=== PATIENT | male | born 1970 | race African-American/Black ===

== ENCOUNTER 2020-05-16 14:40 | Inpatient (IN) | payer BC, OTHER ==
[~2020-05-16] VITALS: Ht 182.9 cm; Wt 135.6 kg
[2020-05-16 14:41] VITALS: BP 184/97
[2020-05-16 15:24] LABS: ABSOLUTE NEUTROPHILS 3.6 thou/uL (1.4-8.2); BASOPHILS 0.9 % (0.0-2.0); HEMATOCRIT 40.2 % (42.0-52.0); MCH 30.1 pg (26.0-34.0); MCHC 32.3 g/dL (28.0-37.0); MCV 93.1 fL (80.0-100.0); MONOCYTES 10.1 % (1.0-8.0); PLATELET COUNT 161 thou/uL (150-400); RBC 4.32 mil/uL (4.50-6.00); RDW 13.1 % (10.5-14.5); WBC 4.5 thou/uL (4.0-11.0)
[2020-05-16 15:38] LABS: ANION GAP 14 mmol/L (7-16); BUN 48 mg/dL (7-18); CALCIUM 8.1 mg/dL (8.5-10.1); CHLORIDE 101 mmol/L (98-107); CO2 19 mmol/L (21-32); CREATININE 3.7 mg/dL (0.7-1.3); GLUCOSE 351 mg/dL (74-106); POTASSIUM 4.9 mmol/L (3.5-5.1); SODIUM 134 mmol/L (136-145)
[2020-05-16 15:48] LABS: ALBUMIN 2.8 g/dL (3.4-5.0); SGOT 29 U/L (15-37); SGPT 25 U/L (30-65); TOTAL PROTEIN 7.4 g/dL (6.4-8.2); TROPONIN-I <0.06 ng/mL (<0.06)
[2020-05-16] MEDS ORDERED: LIPITOR80 MG PO (17:42)
[2020-05-16] MEDS ORDERED: TOPROL XL100 MG PO (17:42)
[2020-05-16] MEDS ORDERED: ZETIA10 MG PO (17:43)
[2020-05-16] MEDS ORDERED: AMLODIPINE BESY10 MG PO (17:43)
[2020-05-16] MEDS ORDERED: METFORMIN HCL500 M3 PO (17:44)
[2020-05-16] MEDS ORDERED: SPIRONOLACTONE50 MG PO (17:44)
[2020-05-16] MEDS ORDERED: DIOVAN160 MG PO (17:44)
[2020-05-16 18:51] LABS: TSH 0.689 uIU/mL (0.358-3.740)
--- NOTE | 2020-05-16 21:26 | NUR ---
Amaya WHITLOCK NOTIFIED RE: PT'S BP AND HOME MEDS NEEDING RESTARTED. ORDERS RECEIV- ED. BP IMPROVED AFTER LASIX, PT DIURESING ABOUT 300 ML CONCENTRATED URINE. PREPARING TO CALL REPORT TO FLOOR.
[2020-05-16 22:00] VITALS: BP 163/88
--- NOTE | 2020-05-17 00:33 | NUR ---
PT ARRIVED VIA CART FROM ER. PT POSITIVE FOR COVID. NOTIFIED TRAINING PROJECT MANAGER, HS, AND ID.
[2020-05-17 01:15] VITALS: BP 196/98
[2020-05-17 05:49] LABS: INR 1.1; PROTIME 11.2 Seconds (9.3-11.4)
[2020-05-17 05:54] LABS: FIBRINOGEN 482.2 mg/dL (210-360)
[2020-05-17 05:59] LABS: HEMOGLOBIN 11.3 gm/dL (14.0-18.0); WBC 3.7 thou/uL (4.0-11.0)
[2020-05-17 06:01] LABS: HEMATOCRIT 34.5 % (42.0-52.0); MCH 30.6 pg (26.0-34.0); MCHC 32.9 g/dL (28.0-37.0); PLATELET COUNT 146 thou/uL (150-400); RBC 3.71 mil/uL (4.50-6.00); RDW 13.4 % (10.5-14.5)
[2020-05-17 06:43] LABS: ALBUMIN 2.4 g/dL (3.4-5.0); CALCIUM 7.3 mg/dL (8.5-10.1); CREATININE 4.6 mg/dL (0.7-1.3); TOTAL BILIRUBIN 0.8 mg/dL (0.2-1.0)
[2020-05-17 06:59] LABS: POTASSIUM 6.1 mmol/L (3.5-5.1)
[2020-05-17 07:08] LABS: GLYCOHEMOGLOBIN (HGB A1C) 7.6 % (4.8-5.6)
--- NOTE | 2020-05-17 07:41 | EKG ---
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 : 1970 Requested By: Jose Wayne Order Number: [id number] MD: Paul Hernandez Measurements Intervals [place] Rate: 115 P: 44 [place]: 159 QRS: -32 QRSD: 74 T: 53 QT: 317 QTc: 439 Interpretive Statements Sinus tachycardia Abnormal R-wave progression, late transition Inferior infarct, old No previous ECG available for comparison Electronically Signed On 05-17-2020 7:41:23 CDT by Paul Hernandez [email or web address] <ELECTRONICALLY SIGNED> By: Paul Hernandez MD, FACC 05/17/20 0741 1534 1534 Paul Hernandez MD, [facility] /EPI
[2020-05-17 08:33] VITALS: BP 177/96
[2020-05-17 10:55] LABS: ABSOLUTE NEUTROPHILS 3.2 thou/uL (1.4-8.2); PLATELET ESTIMATE NORMAL
--- NOTE | 2020-05-17 11:24 | NUR ---
Assess due to RD consult received. Admit with COVID +, ARF, hyperglycemia. Hx obesity, BMI 38, DM, HTN. Pt has had mild wt loss 2-13 lb with change in appetite, loss smell, taste and sore throat (COVID symptoms). ST has assessed, approved for regular diet. BG poorly controlled [id number] aggravated further by steroids. A1C 7.7. On appropriate carb controlled diet. Will add 1 glucerna shake until intake improves. Physician has indicated severe protein calorie malnutrition: RD will defer. Low nutrition risk with appropriate nutrition interventions in place
[2020-05-17 12:00] VITALS: BP 164/91
[2020-05-17 13:27] LABS: URINE BILIRUBIN NEGATIVE (Negative); URINE BLOOD 3+ (Negative); URINE CLARITY CLEAR; URINE COLOR YELLOW; URINE GLUCOSE-RANDOM* 3+ (Negative); URINE KETONES TRACE (Negative); URINE LEUKOCYTES-REFLEX NEGATIVE (Negative); URINE NITRITE-REFLEX NEGATIVE (Negative); URINE PROTEIN (DIPSTICK) 3+ (Negative); URINE SPECIFIC GRAVITY 1.025 (1.005-1.035); URINE UROBILINOGEN 0.2 E.U./dl (0.2-1.0)
[2020-05-17 13:33] LABS: CASTS None Seen /LPF (None Seen); SQUAMOUS 0-3 Few /LPF (0-3); URINE WBC-REFLEX None Seen /HPF (0-5)
[2020-05-17 13:35] LABS: BACTERIA-REFLEX 1-9 Few /HPF (None Seen); CRYSTALS None Seen /LPF (None Seen); URINE RBC 3-10 Few /HPF (0-2)
[2020-05-17 13:41] LABS: URINE CREATININE-RANDOM* 70.6 mg/dL
[2020-05-17 15:45] VITALS: BP 169/91
--- NOTE | 2020-05-17 15:54 | NUR ---
INITIAL ASSESSMENT: MISSAEL reviewed chart and spoke with nursing and attending physician. Pt was admitted from home due to pneumonia/ARF/sepsis. Pt placed in Enhanced Isolation due to testing positive for COVID-19. Pt had previously tested positive at [facility] earlier in the month. Pt had a fever and is on IV abx. Not requiring O2. Renal and ID consulted. Pt is not a candidate for Remdesivir at this time. SW spoke with pt via phone. Introduced role of SW. Pt is alert/orientated x 4. Pt reports he lives at home alone. Prior to admission, pt was independent with ADLs. No use of DME. No hx of post-acute placement or HH services. Pt states he sees an tender labor as an outpatient for his diabetes. Pt unable to recall name of physician. Pt's plan is to return home when medically stable. SW is following to assist as needed with discharge planning.
[2020-05-17 19:29] VITALS: BP 157/89
[2020-05-18] VITALS (12 sets, daily range): BP systolic 143–179; BP diastolic 84–95
[2020-05-18 06:00] LABS: HEMATOCRIT 34.6 % (42.0-52.0); HEMOGLOBIN 11.3 gm/dL (14.0-18.0); MCH 30.4 pg (26.0-34.0); MCHC 32.7 g/dL (28.0-37.0); MCV 93.1 fL (80.0-100.0); RBC 3.72 mil/uL (4.50-6.00); WBC 6.4 thou/uL (4.0-11.0)
[2020-05-18 06:15] LABS: ALBUMIN 2.3 g/dL (3.4-5.0); CALCIUM 8.1 mg/dL (8.5-10.1); CREATININE 5.5 mg/dL (0.7-1.3); PHOSPHORUS 3.1 mg/dL (2.5-4.9); POTASSIUM 5.8 mmol/L (3.5-5.1)
--- NOTE | 2020-05-18 10:49 | NUR ---
INSTRUCTED BY DR. ARREOLA TO INCREASE INSULING GTT TO 15MG/HOUR IF NEXT BLOOD GLUCOSE IS GREATER THAN 500.
--- NOTE | 2020-05-18 13:19 | NUR ---
SW reviewed chart and spoke with nursing and attending physician. Pt remains in Enhanced Isolation due to COVID-19. Pt is afebrile and not requiring O2. Pt is on IV abx and insulin gtt. Pt's BG has been in the 700s. SW is following to assist as needed with discharge planning.
[2020-05-18 15:10] LABS: CALCIUM 8.4 mg/dL (8.5-10.1); CREATININE 5.3 mg/dL (0.7-1.3)
[2020-05-18 15:15] LABS: POTASSIUM 4.5 mmol/L (3.5-5.1)
--- NOTE | 2020-05-18 15:47 | NUR ---
JEN CASTELLANO RENAL DR. PRUITT TO INQUIRE ABOUT IVF TO HELP WITH BLOOD GLUCOSE LEVEL. HE INFORMED ME THAT IVF WOULD NOT HELP ELEVATED GLUCOSE LEVEL IS R/T METHYLPREDNISONE. INSTRUCTED TO CONTINUE TO TIRTRATE INSULIN GTT.
--- NOTE | 2020-05-18 23:00 | NUR ---
ASSUMED PT CARE AT AROUND 1920 HRS. ASSESSMENT COMPLETED. PT UP AD GUERO IN ROOM.APPEARS TO BE IN NO DISTRESS.BP COMING DOWN ABIT. PT DENIES ANY HEADACHE OR NAUSEA.MILD OCCASIONAL COUGH.ON INSULIN DRIP @25. Q1HR CHECKS PER PROTOCOL.ACCUCHECK OF 242@1952(SCHEDULED 36 UNITS OF LANTUS GIVEN),183@2058 THEN 139@2210(RATE CHANGED TO 12.5). SR ON TELEMETRY.TRANSFERRED TO ICU @2300 PER ORDERS.
[2020-05-19] VITALS (30 sets, daily range): BP systolic 130–185; BP diastolic 77–106
--- NOTE | 2020-05-19 05:17 | NUR ---
ASSESSMENT: PT TRANSFERRED TO THE UNIT AT APPROXIMATELY 2200 FROM [facility] WITH EVERY HOUR ACCU CHECKS. FIRST ACCU CHECK AT TRANSFER WAS 139, INSULIN RATE WAS 12.5ML/HR. INSULIN WAS TITRATED TO 9 ML/HR. BS ARE STAYING WITH THE RANGE OF 90-130 PER ORDERS. PT IS ALERT AND ORIENT TIMES FOUR, SLOW TO RESPOND AT TIMES. ABLE TO AMBULATE WITH SBA. DENIES PAIN. DOES HAVE A NON-PRODUCTIVE COUGH AND DID SNEEZE A COUPLE OF TIMES. PT IS COVID + AND IS ENHANCED PRECAUTIONS ISO. ACCORDING TO REPORT, PT HAD 2 BM'S DURING THE DAY. SR PER MONITOR. ELEVATED BP WHILE ASLEEP. GOOD PROGRESS TOWARDS DC GOALS. WILL CONTINUE TO MONTIOR.
[2020-05-19 08:41] LABS: CALCIUM 8.7 mg/dL (8.5-10.1); CREATININE 5.6 mg/dL (0.7-1.3); MAGNESIUM 2.4 mg/dL (1.8-2.4); POTASSIUM 4.4 mmol/L (3.5-5.1)
--- NOTE | 2020-05-19 09:55 | HC ---
[facility] [place] [address] CONSULTATION Name: GONZALEZ TERRELL Rashida Room #: 238-P [facility] IN M.R.#: [id number] Admission: 05/16/20 Attend Phys: Dave Torrez MD Discharge: Date of : 74 Report #: [id number] THIS REPORT FOR: cc: INGE - Family physician unknown INGE - Family physician unknown Leigha Wolf MD ~ CC: Dave ALCAZAR unknown DATE OF SERVICE: 05/18/2020 ENDOCRINE CONSULTATION NOTE CONSULTING PHYSICIAN: Dr. Romel Hardin. REASON FOR CONSULTATION: Uncontrolled type 2 diabetes mellitus. HISTORY OF PRESENT ILLNESS: This is a 49-year-old male patient whose medical background is significant for multiple medical issues including hypertension and type 2 diabetes mellitus, who presented to [place] with complaints of generalized weakness, fatigue as well as malaise and sore throat. Further testing confirmed that he is positive for COVID-19. He was admitted for further care and monitoring. The patient knows that he is maintained on a regimen of NovoLog insulin 28 units with each meal as well as Lantus insulin 70 units at bedtime and metformin twice a day. He notes that his blood glucose values usually fluctuate between 80 and 200 mg/dL, but that they mostly remain in the mid to high 100s. He does not have major or frequent issues with hypoglycemia. The patient does not believe that he has developed retinopathy over his course with diabetes mellitus that has run for the past 20 years or so. He is not aware of issues pertaining to chronic kidney disease. The patient does not have difficulties with peripheral neuropathy nor does he have coronary artery disease. In addition to type 2 diabetes mellitus, the patient is known to have hyperlipidemia and is treated with atorvastatin 80 mg at bedtime and ezetimibe 10 mg daily. He is also hypertensive and is maintained on valsartan 160 mg daily, Toprol-XL 100 mg 3 times daily, spironolactone 50 mg daily. REVIEW OF SYSTEMS: CONSTITUTIONAL: Fatigue, malaise, few chills. No major fever. No body weight changes. HEENT: Sore throat. No sinus pain, ear drainage. PULMONARY: Occasional shortness of breath and cough, but not hemoptysis. [facility] [address] [place] [address] CONSULTATION Name: GONZALEZ TERRELL Room #: [address] [place] [address] IN ..#: [id number] Admission: 05/16/20 Attend Phys: Dave Torrez MD Discharge: Date of : 74 Report #: [id number] CARDIAC: Negative for chest pain, palpitations, syncope or presyncope. GASTROINTESTINAL: Negative for major changes in bowel movement frequency, but is noted for abdominal discomfort and occasional nausea. NEUROLOGY: Negative for loss of consciousness, severe frequent headaches, seizure activity. Otherwise, his review of systems is noncontributory other than those mentioned in HPI. PAST MEDICAL HISTORY: 1. Type 2 diabetes mellitus. 2. Hypertension. 3. Hyperlipidemia. 4. Obesity. OUTPATIENT MEDICATIONS: Metoprolol XL 300 mg daily, atorvastatin 80 mg at bedtime, Zetia 10 mg daily, amlodipine 10 mg daily, metformin b.i.d., valsartan 160 mg daily, spironolactone 50 mg daily. ALLERGIES: There are no known drug allergies. FAMILY HISTORY: Noncontributory. SOCIAL HISTORY: The patient denies use of tobacco, alcohol or illicit drugs. He is not and does not have children. PHYSICAL EXAMINATION: GENERAL: Pleasant -[place] male patient who is not in apparent pain or distress. VITAL SIGNS: Blood pressure is 143/84 mmHg, heart rate is 104 beats per minute, respiration 18 per minute, temperature 36.6 degrees Celsius. CONSTITUTIONAL: The patient is sitting upright in bed, appears relatively comfortable, not in apparent distress. HEENT: Anicteric sclerae. Intact extraocular motions. NECK: Supple, without JVD, carotid bruits or thyromegaly. CHEST: Noted for moderate entry bilaterally with scattered rales, but not wheezes or crackles. HEART: Regular rate and rhythm without murmurs or gallops. ABDOMEN: Soft, lax. No guarding. Active bowel sounds. EXTREMITIES: Lower extremity exam is noted for trace ankle edema, but no skin breaks or ulcerations. NEUROLOGIC: Awake, alert, and oriented to time, place and person. The rest of his examination is nonfocal. PSYCHIATRIC: Pleasant, interactive. Normal mood and affect. LABORATORY DATA: The patient's blood glucose values were reviewed at length since his hospital stay. On presentation, his blood glucose was elevated and [facility] [address] [place] [address] CONSULTATION Name: TERRELLGONZALEZ GARCIA Rashida Room #: 238-P [facility] IN ..#: [id number] Admission: 05/16/20 Attend Phys: Dave Torrez MD Discharge: Date of : 74 Report #: [id number] has remained so throughout his stay and earlier this morning was registered at 786 mg/dL. Sodium 126, potassium 5.8, chloride 96, CO2 19, anion gap 11, BUN 82, creatinine of 5.5. On presentation, this was at 3.7, total bilirubin 0.8, calcium 8.1, phosphorus 3.1, magnesium 1.9, alkaline phosphatase 94, ALT 26, total protein 6.0, albumin 2.3, EGFR 14. Lactic acid 1.3, CPK 126. BNP 1344. CRP 89.6. White blood count 6.4, hemoglobin 11.3, hematocrit 34.6, platelets 187. TSH 0.689. Hemoglobin A1c 7.6%. Vitamin D 10.8. ASSESSMENT AND PLAN: 1. Type 2 diabetes mellitus. The patient is maintained on a fairly large insulin requirement as per his report of insulin therapy at home. His reported blood glucose values match up to the measured hemoglobin A1c of 7.6%. However, the accuracy of this is a rather suspect in view of his advanced kidney disease. I have resumed the patient's basal bolus coverage yesterday with both Lantus and Humalog insulin, but this resumption did not seem to influence his blood glucose outlook whatsoever as he remained severely hyperglycemic and has actually gotten his highest blood glucose earlier this morning. Given his failure to respond to subcutaneous basal bolus insulin therapy, I have made orders to convert him to intravenous insulin therapy as per the [facility] IV insulin protocol, which was started 2 hours ago. Blood glucose monitoring will be intensified on hourly basis as per [facility] IV insulin protocol, and therapeutic adjustments will be made accordingly until a satisfactory glycemic control was achieved. Once he demonstrates a satisfactory glycemic control, we could revert to a subcutaneous therapy. I believe that under the current circumstances of his acute illness as well as the need to utilize a high dose steroid therapy that this prompted the current issues with severe hyperglycemia. Furthermore, I am suspicious that his baseline is probably not ideal to begin with. As we proceed with IV insulin therapy, I will maintain Lantus therapy to expedite his recovery and transition to basal bolus therapy eventually. 2. Hypertension. The patient's level of blood pressure control is marginal. He is to continue with the current regimen and adjust his regimen as per the managing hospital team. 3. Hyperlipidemia. The patient is maintained on a combination of atorvastatin and ezetimibe. These are to be resumed once he is clinically stable to do so. 4. Renal insufficiency. The patient has advanced kidney disease. I would attribute at least part of the current renal insufficiency to the presumed dehydration in the setting of severe hyperglycemia. Dr. Whiteside and I will be evaluating the patient for this issue in the near future. 5. Pneumonia. The patient was diagnosed with COVID-19 and is currently receiving therapy with zinc, high dose steroid therapy in the form of Solu-Medrol 62.5 mg IV t.i.d., Rocephin [place] [address] CONSULTATION Name: GONZALEZ TERRELL Rashida Room #: 238-P [facility] IN [facility].#: [id number] Admission: 05/16/20 Attend Phys: Dave Torrez MD Discharge: Date of : 74 Report #: [id number] I certainly appreciate this consultation by Dr. Hardin. <ELECTRONICALLY SIGNED> By: Leigha Wolf MD 05/19/20 0955 0949 1410 MD phillip Clifford
--- NOTE | 2020-05-19 14:02 | NUR ---
cm tired visited with francesca via phone call, no answer. cm spoke with his brother miguel sc phone call and he stated francesca is talking with mom on phone now. pt still on insulin drip. cm confirmed pt doesnt have pcp but has dm dr at [facility] dusty [place] at [address] [place] [address] mo [address] location # [phone]. pt covid +. DCP from home and plan to dc home when medically stable.
--- NOTE | 2020-05-19 18:37 | NUR ---
PT CONTINUES ON INSULIN GTT AND ENHANCED PREACAUTIONS FOR COVID 19. PT UP AROUND ROOM AND TAKING IN GOOD PO. OBTAIN ORDER FOR HYDRALAZINE TO TREAT ELEVATED BLODD PRESSURE. NC REMAINS ON ROOM AIR AND IS PROGRESSING TOWARDS GOAL. WILL CONTINUE TO ASSESS.
--- NOTE | 2020-05-19 19:06 | NUR ---
SPOKE WITH DR JADE OF BACKORDER FOR HYDRALAZINE AND HE WILL CHANGE BLOOD PRESSURE MEDICATIONS. BEDSIDE REPORT GIVEN TO HAYDEE BARR.
[2020-05-19 19:34] LABS: URINE CREATININE-RANDOM* 86.6 mg/dL
[2020-05-19 19:55] LABS: PROT/CREAT RATIO 6.5; URINE PROTEIN-RANDOM* 559.9 mg/dL (<11.9)
[2020-05-20] VITALS (34 sets, daily range): BP systolic 138–187; BP diastolic 85–106
[2020-05-20 05:46] LABS: ALBUMIN 2.4 g/dL (3.4-5.0); CALCIUM 8.3 mg/dL (8.5-10.1); CREATININE 5.9 mg/dL (0.7-1.3); PHOSPHORUS 3.2 mg/dL (2.5-4.9); POTASSIUM 3.8 mmol/L (3.5-5.1)
[2020-05-20 18:09] LABS: PROT/CREAT RATIO 8.2; URINE PROTEIN-RANDOM* 600.1 mg/dL (<11.9)
--- NOTE | 2020-05-20 18:30 | NUR ---
Transfer order dc'd due to continued insulin gtt and high insulin demands. Pt had small amt of bleeding from nose this morning. No further episodes. Dr Hardin made aware and will dc Lovenox is ongoing issue. Hypertensive. Dr Hardin notifed and added additional oral mediction. Pt out of bed wih assist to the commode and to the chair today. Report given to oncoming RN. See insulin flow sheet for titrations.
[2020-05-21] VITALS (33 sets, daily range): BP systolic 145–182; BP diastolic 85–108
[2020-05-21 05:06] LABS: ALBUMIN 2.3 g/dL (3.4-5.0); CALCIUM 8.2 mg/dL (8.5-10.1); CREATININE 5.4 mg/dL (0.7-1.3); POTASSIUM 4.5 mmol/L (3.5-5.1)
--- NOTE | 2020-05-21 18:36 | NUR ---
Patient up to chair twice today without difficulty. Stand by assist. Patient switched over to ACHS accuchecks and insulin, gtt stopped. Good appetite. Heart rate and rhythm stable. Adequate oxygenation on room air. Denies pain. Progressing towards plan of care.
[2020-05-22] VITALS (14 sets, daily range): BP systolic 138–175; BP diastolic 79–98
[2020-05-22 05:31] LABS: ALBUMIN 2.3 g/dL (3.4-5.0); CALCIUM 7.9 mg/dL (8.5-10.1); CREATININE 5.1 mg/dL (0.7-1.3); PHOSPHORUS 5.4 mg/dL (2.5-4.9); POTASSIUM 4.8 mmol/L (3.5-5.1)
--- NOTE | 2020-05-22 13:50 | NUR ---
chart review. he cont on insulin drip. unable to visit with pt rt conserve on ppe. he is covid +. will cont following as needed for dc needs.
[2020-05-23] VITALS (15 sets, daily range): BP systolic 133–182; BP diastolic 77–106
[2020-05-23 04:57] LABS: ALBUMIN 2.3 g/dL (3.4-5.0); CALCIUM 8.3 mg/dL (8.5-10.1); CREATININE 5.1 mg/dL (0.7-1.3); PHOSPHORUS 5.8 mg/dL (2.5-4.9); POTASSIUM 5.1 mmol/L (3.5-5.1)
--- NOTE | 2020-05-23 08:44 | NUR ---
AROUND 0830, ENDOCRINOLOGY, DR. RAGSDALE ROUNDING ON PATIENT. PLANS TO DECREASE INSULIN NEEDS DUE TO BETTER GLUCOSE READINGS. AT 0845, DR. PATEL RENAL, AT BEDSIDE. POC AND GOALS DISCUSSED WITH DR. PATEL.
[2020-05-24] VITALS (15 sets, daily range): BP systolic 147–177; BP diastolic 73–100
--- NOTE | 2020-05-24 09:16 | NUR ---
Nutrition followup: Pt remains in ICU with enhanced isolation due to COVID. Weight up 6# from admit. Eating well, 100% of meals last few days. Will D/C Glucerna. BG improved significantly with Endocrinology managing. no longer on insulin drip. Continues on steroid with vitamin/mineral for COVID. Plan transfer when room available. Remains low nutrition risk.
[2020-05-24 11:21] LABS: ALBUMIN 2.3 g/dL (3.4-5.0)
[2020-05-24 11:22] LABS: CREATININE 3.8 mg/dL (0.7-1.3)
[2020-05-24 11:30] LABS: CALCIUM 7.7 mg/dL (8.5-10.1); CREATININE 3.8 mg/dL (0.7-1.3); POTASSIUM 5.1 mmol/L (3.5-5.1)
--- NOTE | 2020-05-24 16:53 | NUR ---
PT IS UP AD GUERO IN ROOM, STEADY ON FEET, CALLS OUT APPROPRIATELY WHEN NEEDING ANYTHING. PT HAS BEEN READING MENU AND ASKING RN TO CALL AND CHANGE MENU WHEN NEEDED. PT HAS BEEN USING BESIDE URINAL AND HAD ADEQUATE UO. PT HAD BM TODAY. STILL AWAITING ROOM ON 3 W. PT IS CURRENTLY CCU STATUS. AFEBRILE.
--- NOTE | 2020-05-25 03:17 | NUR ---
ASSUMED CARE OF PATIENT AT 1900. VSS, AFEBRILE. DENIES PAIN, NAUSEA, SOB. RESTING WELL THROUGH THE NIGHT. GIVEN BATH AND LINENS CHANGED. NO S/S OF DISTRESS. PRORESSING WELL TOWARDS POC GOALS.
[2020-05-25 04:01] VITALS: BP 182/100
[2020-05-25 06:48] LABS: ALBUMIN 2.4 g/dL (3.4-5.0); CALCIUM 8.3 mg/dL (8.5-10.1); CREATININE 3.8 mg/dL (0.7-1.3); PHOSPHORUS 5.5 mg/dL (2.5-4.9); POTASSIUM 4.7 mmol/L (3.5-5.1)
[2020-05-25 08:01] VITALS: BP 159/85
[2020-05-25 13:02] VITALS: BP 168/91
[2020-05-25 16:14] VITALS: BP 148/76
--- NOTE | 2020-05-25 19:29 | NUR ---
PATIENT REMAINS A&O X 4, PLEASANT AND COOPERATIVE WITH CARES. DENIES PAIN OR SOB. uP TO CHAIR FOR A FEW HOURS THIS SHIFT. UP TO TOILET X 3. GOOD URINE OUTPUT. GOOD APPETITE. REMAINS IN ENHANCED PRECAUTIONS. NO FURTHER CONCERNS AT THIS TIME. WILL CONTINUE TO MONITOR AND CARE PER PLAN OF CARE.
[2020-05-25 20:01] VITALS: BP 138/78
[2020-05-26] VITALS: BP 175/103
[2020-05-26 04:01] VITALS: BP 149/80
--- NOTE | 2020-05-26 05:18 | NUR ---
ASSUMED CARE OF PATIENT AT 1900. VSS, AFEBRILE. RESTING WELL THROUGH THE NIGHT. NO S/S OF DISTRESS. PROGRESSING WELL TOWARDS POC GOALS.
[2020-05-26 05:47] LABS: HEMATOCRIT 31.7 % (42.0-52.0); HEMOGLOBIN 10.4 gm/dL (14.0-18.0); MCH 30.1 pg (26.0-34.0); MCHC 32.8 g/dL (28.0-37.0); MCV 91.8 fL (80.0-100.0); RBC 3.45 mil/uL (4.50-6.00); RDW 13.5 % (10.5-14.5); WBC 7.9 thou/uL (4.0-11.0)
[2020-05-26 05:51] LABS: CREATININE 3.3 mg/dL (0.7-1.3); POTASSIUM 5.2 mmol/L (3.5-5.1)
[2020-05-26 12:47] VITALS: BP 164/102
--- NOTE | 2020-05-26 13:28 | NUR ---
chart review. unable to visit with francesca ramirez + syed, conserve on ppe. cm visited with his brother miguel via phone call, he had one question, if he does have transportation home, then how will get home. cm education on [employer] transport or family if all wear mask in care ride home. dcp : home, if needs transportation call [facility] [phone] to set up time.
--- NOTE | 2020-05-26 15:02 | NUR ---
ASSUMED CARE AT 1200. AFEBRILE. ADEQUATE UOP. PATIENT EATING MEALS. POSITIVE FOR BM'S. PATIENT MOBILE AND ON ROOM AIR. PLAN IS TO DISCHARGE HOME TOMORROW. REPORT GIVEN TO 3W RN. PATIENT TO BE TRANSFERRED BY 1600.
[2020-05-26 20:55] VITALS: BP 178/101
[2020-05-26 23:15] VITALS: BP 190/105
[2020-05-27] VITALS (7 sets, daily range): BP systolic 140–183; BP diastolic 78–97
[2020-05-27 06:10] LABS: HEMOGLOBIN 10.1 gm/dL (14.0-18.0); MCH 29.8 pg (26.0-34.0); MCHC 32.5 g/dL (28.0-37.0); MCV 91.7 fL (80.0-100.0); RBC 3.38 mil/uL (4.50-6.00); RDW 13.5 % (10.5-14.5); WBC 8.8 thou/uL (4.0-11.0)
[2020-05-27 06:33] LABS: ALBUMIN 2.2 g/dL (3.4-5.0); CALCIUM 8.2 mg/dL (8.5-10.1); CREATININE 2.9 mg/dL (0.7-1.3); PHOSPHORUS 4.4 mg/dL (2.5-4.9); POTASSIUM 4.8 mmol/L (3.5-5.1)
--- NOTE | 2020-05-27 07:51 | NUR ---
ASSUMED CARE AT 1900. PT DENIED PAIN OR NAUSEA; DIM/COARSE LUNG SOUNDS, PT DENIED SOB. IVF INFUSING. BP ELEVATED DESPITE SCHEDULED BP MEDS; OBTAINED ORDER FOR ONE TIME PRN VASOTECH IVPB WHICH IMPROVED PRESSURE SLIGHTLY, COMPANY MANAGER NOTIFIED OF IMPROVED BP. NO OTHER CONCERNS, SHIFT REPORT GIVEN 0700.
[2020-05-27] MEDS ORDERED: LANTUS SUBQ (08:11)
[2020-05-27] MEDS ORDERED: CARVEDILOL25 MG PO (08:11)
[2020-05-27] MEDS ORDERED: PREDNISONE 5 MG5 M1 PO (08:12)
[2020-05-27] MEDS ORDERED: HUMALOG100 UNIT/1 SUBQ (08:12)
--- NOTE | 2020-05-27 16:29 | NUR ---
ASSUMED CARE OF PT AT 0700. PT AOX4 IN NO ACUTE DISTRESS. VOICING CONCERNS ABOUT DISABILITY CLAIMS - DEFERRED TO CASE MANGEMENT. BLOOD PRESSURE AND BLOOD SUGAR REMAIN HIGH - STABLE. OK TO D/C PER PHYSICIAN. WAITING ON PAPERWORK. CLAYTONM.
== END 2020-05-27 18:40 | disposition home or self-care (01) | DRG 871 ==
LOC: ER 14:40 → EROBS 16:28 → ICU 16:28 → 3W 16:28 → ER 22:01 → 3W 22:01 → ICU 05-18 23:26 → 3W 05-26 16:32
PROVIDERS: Emergency Medicine; Hospitalist; Internal Medicine; Internal Medicine Nephrology; Nurse Practitioner; Specialist; ADMIT Hospitalist; ATTEND Hospitalist
DX: A41.89 Other specified sepsis (principal); J12.89 Other viral pneumonia; N17.0 Acute kidney failure with tubular necrosis; U07.1 COVID-19; E44.0 Moderate protein-calorie malnutrition; E87.0 Hyperosmolality and hypernatremia; Z68.41 Body mass index [BMI] 40.0-44.9, adult; E11.65 Type 2 diabetes mellitus with hyperglycemia; E78.5 Hyperlipidemia, unspecified; E66.9 Obesity, unspecified; R53.81 Other malaise; E86.0 Dehydration; E87.5 Hyperkalemia; D64.9 Anemia, unspecified; I12.9 Hypertensive chronic kidney disease with stage 1 through stage 4 chronic kidney disease, or unspecified chronic kidney disease; N18.30 Chronic kidney disease, stage 3 unspecified; E87.8 Other disorders of electrolyte and fluid balance, not elsewhere classified; E11.22 Type 2 diabetes mellitus with diabetic chronic kidney disease; Z79.899 Other long term (current) drug therapy; Z79.84 Long term (current) use of oral hypoglycemic drugs; Z86.718 Personal history of other venous thrombosis and embolism; Z86.711 Personal history of pulmonary embolism
CPT/HCPCS: 10078; 10203; 10879

== ENCOUNTER 2020-09-23 13:57 | Emergency (ER) | payer BC, OTHER ==
[~2020-09-23] VITALS: Ht 182.9 cm; Wt 127.0 kg
[~2020-09-23 13:57] MED LIST: AMLODIPINE BESY10 MG PO; CARVEDILOL25 MG PO; DIOVAN160 MG PO; HUMALOG100 UNIT/1 SUBQ; LANTUS SUBQ; LIPITOR80 MG PO; METFORMIN HCL500 M3 PO; PREDNISONE 5 MG5 M1 PO; SPIRONOLACTONE50 MG PO; TOPROL XL100 MG PO; ZETIA10 MG PO
[2020-09-23] MEDS ORDERED: LANTUS SUBQ (14:07)
[2020-09-23] MEDS ORDERED: HUMALOG100 UNIT/1 SUBQ (14:08)
[2020-09-23 15:01] LABS: ABSOLUTE NEUTROPHILS 3.2 thou/uL (1.4-8.2); BASOPHILS 0.7 % (0.0-2.0); EOSINOPHILS 1.7 % (0.0-3.0); HEMATOCRIT 31.5 % (42.0-52.0); HEMOGLOBIN 10.2 gm/dL (14.0-18.0); LYMPHOCYTES 20.3 % (24.0-44.0); MCH 29.2 pg (26.0-34.0); MCHC 32.3 g/dL (28.0-37.0); MCV 90.3 fL (80.0-100.0); MONOCYTES 10.5 % (1.0-8.0); PLATELET COUNT 244 thou/uL (150-400); POLYS 66.8 % (36.0-66.0); RBC 3.49 mil/uL (4.50-6.00); RDW 15.4 % (10.5-14.5); WBC 4.7 thou/uL (4.0-11.0)
[2020-09-23 15:16] LABS: ANION GAP 8 mmol/L (7-16); BUN 17 mg/dL (7-18); CALCIUM 8.6 mg/dL (8.5-10.1); CHLORIDE 108 mmol/L (98-107); CO2 29 mmol/L (21-32); CREATININE 2.1 mg/dL (0.7-1.3); GLUCOSE 84 mg/dL (74-106); SODIUM 145 mmol/L (136-145)
[2020-09-23 15:26] LABS: ALBUMIN 3.2 g/dL (3.4-5.0); SGOT 43 U/L (15-37); SGPT 108 U/L (30-65); TOTAL BILIRUBIN 0.7 mg/dL (0.2-1.0); TOTAL PROTEIN 6.4 g/dL (6.4-8.2); TROPONIN-I <0.06 ng/mL (<0.06)
[2020-09-23 17:21] VITALS: BP 175/111
--- NOTE | 2020-09-25 10:24 | EKG ---
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 Technologist: PRAKASH : 1970 Requested By: Ace Carrasco Order Number: [id number] MD: [place] Measurements Intervals [place] Rate: 81 P: 43 [place]: 190 QRS: -21 QRSD: 85 T: 21 QT: 422 QTc: 490 Interpretive Statements Sinus rhythm Probable left atrial enlargement Borderline left axis deviation Borderline prolonged QT interval Compared to ECG 05/16/2020 15:34:29 Sinus tachycardia no longer present Myocardial infarct finding no longer present Electronically Signed On 09-25-2020 10:24:13 PICKLE CUTTER by [place] [email or web address] <ELECTRONICALLY SIGNED> By: [place] MD, [facility] 09/25/20 [facility] 1444 1444 [place] MD, FACC /EPI
== END 2020-09-23 17:21 | disposition home or self-care (01) ==
LOC: ER 13:57
PROVIDERS: Emergency Medicine
DX: R06.02 Shortness of breath (principal); R10.13 Epigastric pain; R11.0 Nausea; R05 Cough; R06.2 Wheezing; R09.3 Abnormal sputum; R60.0 Localized edema; I10 Essential (primary) hypertension; E78.5 Hyperlipidemia, unspecified; E11.9 Type 2 diabetes mellitus without complications; E66.9 Obesity, unspecified; I25.2 Old myocardial infarction; Z20.822 Contact with and (suspected) exposure to COVID-19; Z79.4 Long term (current) use of insulin; Z79.899 Other long term (current) drug therapy; Z86.711 Personal history of pulmonary embolism; Z68.38 Body mass index [BMI] 38.0-38.9, adult; Z86.16 Personal history of COVID-19

== ENCOUNTER 2020-12-20 08:19 | Emergency (ER) | payer BC, OTHER ==
[~2020-12-20] VITALS: Ht 182.9 cm; Wt 137.9 kg
[2020-12-20 08:45] LABS: ABSOLUTE NEUTROPHILS 4.4 thou/uL (1.4-8.2); BASOPHILS 0.6 % (0.0-2.0); EOSINOPHILS 2.7 % (0.0-3.0); HEMATOCRIT 32.7 % (42.0-52.0); HEMOGLOBIN 10.8 gm/dL (14.0-18.0); LYMPHOCYTES 19.5 % (24.0-44.0); MCH 29.2 pg (26.0-34.0); MCHC 33.1 g/dL (28.0-37.0); MCV 88.4 fL (80.0-100.0); PLATELET COUNT 242 thou/uL (150-400); POLYS 64.2 % (36.0-66.0); RDW 15.7 % (10.5-14.5); WBC 6.8 thou/uL (4.0-11.0)
[2020-12-20 09:00] LABS: ALBUMIN 3.3 g/dL (3.4-5.0); ANION GAP 11 mmol/L (7-16); BUN 27 mg/dL (7-18); CALCIUM 8.9 mg/dL (8.5-10.1); CHLORIDE 108 mmol/L (98-107); CO2 24 mmol/L (21-32); CREATININE 2.3 mg/dL (0.7-1.3); POTASSIUM 3.5 mmol/L (3.5-5.1); SGOT 21 U/L (15-37); SGPT 45 U/L (30-65); SODIUM 143 mmol/L (136-145); TOTAL BILIRUBIN 0.7 mg/dL (0.2-1.0); TOTAL PROTEIN 8.1 g/dL (6.4-8.2); TROPONIN-I <0.06 ng/mL (<0.06)
[2020-12-20 09:11] LABS: GLUCOSE 29 mg/dL (74-106)
[2020-12-20 11:09] VITALS: BP 164/91
--- NOTE | 2020-12-20 11:36 | EKG ---
[place] [address] [facility] 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 AGUILAR : 1970 Requested By: Evans Mcdaniel Order Number: [id number] MD: [place] Measurements Intervals [place] Rate: 85 P: 44 [place]: 196 QRS: -18 QRSD: 91 T: 60 QT: 398 QTc: 474 Interpretive Statements Sinus rhythm Probable left atrial enlargement Borderline left axis deviation Compared to ECG 09/23/2020 14:44:35 No significant changes Electronically Signed On 12-20-2020 11:36:46 CDT by [place] [email or web address] <ELECTRONICALLY SIGNED> By: [place] MD, [facility] 12/20/20 1136 0855 0855 [place] MD, FACC /EPI
== END 2020-12-20 11:08 | disposition home or self-care (01) ==
LOC: ER 08:19
PROVIDERS: Emergency Medicine
DX: E11.649 Type 2 diabetes mellitus with hypoglycemia without coma (principal); I10 Essential (primary) hypertension; I25.2 Old myocardial infarction; Z86.711 Personal history of pulmonary embolism; E66.9 Obesity, unspecified; Z68.41 Body mass index [BMI] 40.0-44.9, adult; Z79.899 Other long term (current) drug therapy; Z79.4 Long term (current) use of insulin